=== PATIENT | male | born 1995 | race Caucasian/White ===

== ENCOUNTER → 2021-01-09 | Emergency (ER) | payer BC ==
[~2021-01-09] VITALS: Ht 175.3 cm; Wt 68.0 kg
[~2021-01-09] MED LIST: BACTRIM DS TAB1 EACH PO
== END | disposition home or self-care (01) ==
LOC: ER 18:13
DX: S61.011A Laceration without foreign body of right thumb without damage to nail, initial encounter (principal); W26.8XXA Contact with other sharp object(s), not elsewhere classified, initial encounter; Y93.89 Activity, other specified; Y92.89 Other specified places as the place of occurrence of the external cause; Y99.8 Other external cause status

== ENCOUNTER 2022-10-02 16:59 | Emergency (ER) | payer OTHER ==
[~2022-10-02] VITALS: Ht 175.3 cm; Wt 68.0 kg
[~2022-10-02 16:59] MED LIST changes: +HYDROXYZINE HCL50 MG PO
== END 2022-10-02 19:41 | disposition home or self-care (01) ==
LOC: ER 16:59
DX: S91.322A Laceration with foreign body, left foot, initial encounter (principal); V29.39XA Other motorcycle (driver) (passenger) injured in unspecified nontraffic accident, initial encounter; Y93.55 Activity, bike riding; Y92.413 State road as the place of occurrence of the external cause; Z88.2 Allergy status to sulfonamides